=== PATIENT | female | born 1995 | race Caucasian/White ===

== ENCOUNTER 2024-08-13 14:04 | Outpatient (CLI) | payer BC ==
[2024-08-13] MEDS ORDERED: iohexoL 240 mgI/mL, 50 ML INFUS..BTL IV ONE (14:38)
== END 2024-08-13 19:55 | disposition home or self-care (01) ==
LOC: SRD 14:04
PROVIDERS: ATTEND Specialist
DX: N92.6 Irregular menstruation, unspecified (principal); N83.8 Other noninflammatory disorders of ovary, fallopian tube and broad ligament
CPT/HCPCS: 74740; 58340; Q9966